=== PATIENT | male | born 1970 | race Caucasian/White ===

== ENCOUNTER 2023-04-29 13:17 | Outpatient (AMB) | payer OTHER, SELFPAY ==
[2023-04-29 13:35] VITALS: BP 118/62; PULSE 66; BMI 40.8
--- NOTE | 2023-04-29 13:35 | MHC.OFFVIS ---
Intake Vital Signs 04/29/23 13:35 Height 5 ft 9 in Weight 276 lb 7.355 oz BMI 40.8 BP 118/62 Blood Pressure Location Lt brachial Pulse 66 Intake Visit Reasons: pre colonoscopy screening Intake Note: Patient presents to in office today as a new patient for pre colonoscopy screening. CC:Patient states he was having epigastric pain and prescribed Pantoprazole. Denies having any new GI symptoms today. 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 Patient was referred to us by his PCP for colonoscopy. Patient denies having colonoscopy in the past. No family history of CRC. On low dose aspirin. No history of sleep apnea. Denies any issues with anesthesia in the past. Patient reports to be moving his bowels well without any issues. Symptoms of acid reflux, patient was started on low-dose pantoprazole and reports to be doing well. Patient denies dyspepsia, dysphagia or odynophagia. Patient denies any melena, hematochezia, unintentional weight loss or ribbon like stools. No history of infectious diseases in the past or present. [facility] Medical History (Updated 04/29/23 @ 14:09 by JAIME Olivarez) GERD (gastroesophageal reflux disease) HTN (hypertension) Surgical History (Updated 04/29/23 @ 13:58 by JAIME Olivarez) S/P scrotal varicocelectomy H/O circumcision H/O vasectomy H/O eye surgery Family History Mother Breast cancer Social History Alcohol intake: current Alcohol intake frequency: holidays/special occasions only Tobacco use type: Cigar Review of Systems Const Denies weight gain and Denies weight loss ENT Reports no additional complaints, Denies dysphagia and Denies odynophagia Card Reports no additional complaints Resp Reports no additional complaints GI Denies abdominal pain, Denies belching, Denies melena, Denies bloating, Denies change in bowel habits, Denies dysphagia, Denies excessive flatus, Denies dyspepsia, Denies heartburn, Denies diarrhea, Denies loose stools, Denies nausea, Denies odynophagia and Denies vomiting Reports no additional complaints Musc Reports no additional complaints Neuro Reports no additional complaints Psych Reports no additional complaints Endo Reports no additional complaints Physical Exam Vital Signs: Last Vital Signs Pulse 66 04/29/23 13:35 BP 118/62 04/29/23 13:35 BMI result Body Mass Index 40.8 Const General: healthy appearing, no acute distress and well developed Nutritional Appearance: obese Orientation/consciousness: patient oriented x3 Resp Effort & Inspection: normal respiratory effort, able to speak in complete sentences, no tracheal deviation and symmetric chest movement Auscultation: clear to auscultation bilaterally Cardio Rate: regular rate GI Inspection: Yes normal to inspection, No distended and Yes obesity Palpation (GI): Soft to palpation, not firm, nontender and No hepatosplenomegaly present Auscultation: normal bowel sounds General: Yes no CVA tenderness Back/Spine/Pelvis Back: no CVA tenderness Skin General skin exam: elasticity normal, turgor normal and dry skin Neuro General: patient oriented x3 Psych Appearance: grossly normal Mental Status: mental status grossly normal Assessment & Plan Assessment & Plan (1) GERD (gastroesophageal reflux disease): Code(s): K21.9 - Gastro-esophageal reflux disease without esophagitis Qualifiers: Esophagitis presence: esophagitis presence not specified Qualified Code(s): K21.9 - Gastro-esophageal reflux disease without esophagitis (2) Screen for colon cancer: Code(s): Z12.11 - Encounter for screening for malignant neoplasm of colon Plan Patient will continue taking pantoprazole daily. Discussed with him avoiding dietary triggers and late night snacking. Staying upright for minimum 3 hours after meals discussed with patient. Patient will be sent for upper endoscopy to rule out esophagitis, gastritis, duodenitis, gastric or peptic ulcers, H pylori, Durand's. Patient sent for colonoscopy. As mentioned above patient has never had colonoscopy in the past and no family history of CRC. No issues with anesthesia in the past. Patient is on low-dose aspirin. What to expect before during and after the procedure discussed with patient. The importance of good bowel prep and clear liquid diet day before procedure discussed with patient. I will see him after the procedure, sooner on as needed basis. Patient is agreeable to this plan and verbalizes understanding of instructions. He was given the opportunity to ask questions and all questions answered. Thank you for allowing me to participate in his care Coding Level of Care Code New Pt Level 3 (98304) Diagnoses Gastroesophageal reflux disease, unspecified whether esophagitis present K21.9 Esophagitis presence: esophagitis presence not specified Screen for colon cancer Z12.11 Time Spent (min) 40 Comment 30 minutes spent with patient and additional 10 minutes spent reviewing his records
== END 2023-04-29 15:54 | disposition home or self-care (01) ==
PROVIDERS: PCP Hospitalist; Visit Provider Nurse Practitioner Family
DX: K21.9 Gastro-esophageal reflux disease without esophagitis (principal); Z12.11 Encounter for screening for malignant neoplasm of colon
CPT/HCPCS: 99203

== ENCOUNTER → 2023-04-29 13:17 | Outpatient (BNVA) | payer OTHER, SELFPAY | PROVIDERS: PCP Hospitalist; Visit Provider Nurse Practitioner Family ==